=== PATIENT | female | born 1960 | race Two or more races ===

== ENCOUNTER 2019-04-10 15:03 | Emergency (ER) | payer OTHER ==
[~2019-04-10] VITALS: Ht 157.5 cm; Wt 56.2 kg
[2019-04-10] MEDS ORDERED: CALCIUM500 M1 (15:16)
[2019-04-10] MEDS ORDERED: BACTRIM DS TAB1 EACH PO (18:41)
[2019-04-10] MEDS ORDERED: CELEBREX200MG PO (18:53)
== END 2019-04-10 18:59 | disposition home or self-care (01) ==
LOC: ER 15:03
DX: N39.0 Urinary tract infection, site not specified (principal); R10.31 Right lower quadrant pain